=== PATIENT | male | born 1950 | race Caucasian/White ===

== ENCOUNTER 2016-06-29 06:25 | Day surgery (SDC) | payer OTHER ==
[2016-06-28 09:47] LABS: BLOOD UREA NITROGEN 15 mg/dL (7-18)
[2016-06-28 09:53] LABS: ASPARTATE AMINO TRANSFERASE 14 U/L (15-37)
[~2016-06-29] VITALS: Ht 175.3 cm; Wt 66.0 kg
[~2016-06-29 06:25] MED LIST: BENA20TA2 PO; OMEP-110 PO; OXYC-302 PO
[2016-06-29 06:36] VITALS: BP 131/81
[2016-06-29] MEDS ORDERED: LACTATED RINGERS 1,000 ML IV SCH (06:39)
[2016-06-29] MEDS ORDERED: BUPIVACAINE/PF-EPI 0.5% 1:200K ONE (06:45)
[2016-06-29] MEDS ORDERED: FENTANYL PF 250 MCG/5ML ONE (07:12)
[2016-06-29] MEDS ORDERED: MIDAZOLAM 1 MG/ML, 2ML ONE (07:12)
[2016-06-29] MEDS ORDERED: GLYCOPYRROLATE 0.2MG/1ML ONE (07:15)
[2016-06-29] MEDS ORDERED: DEXAMETHASONE 4 MG/ML, 1ML ONE (07:15)
[2016-06-29] MEDS ORDERED: KETOROLAC 30 MG/1 ML ONE (07:15)
[2016-06-29] MEDS ORDERED: SUCCINYLCHOLINE 20 MG/ML, 10ML ONE (07:15)
[2016-06-29] MEDS ORDERED: PROPOFOL 10 MG/ML, 20ML ONE (07:15)
[2016-06-29] MEDS ORDERED: ONDANSETRON 2MG/ML, 2ML ONE (07:15)
[2016-06-29] MEDS ORDERED: NEOSTIGMINE 1 MG/ML, 10ML ONE (07:15)
[2016-06-29] MEDS ORDERED: ROCURONIUM 10 MG/ML ONE (07:15)
[2016-06-29] MEDS ORDERED: HYDROmorphone 1 MG/ML, 1ML IV PRN (08:00)
[2016-06-29] MEDS ORDERED: ONDANSETRON 2MG/ML, 2ML IVPush PRN (08:00)
[2016-06-29] MEDS ORDERED: ACETAMINOPHEN 325 MG TABLET PO PRN (08:00)
[2016-06-29] MEDS ORDERED: OXYcodone 5 MG/5 ML ORAL.SOL UDC PO PRN (08:00)
[2016-06-29] MEDS ORDERED: FENTANYL PF 100 MCG/2ML IV PRN (08:00)
[2016-06-29] MEDS ORDERED: PROMETHAZINE 25 MG/ML, 1ML IV PRN (08:00)
[2016-06-29] MEDS ORDERED: MEPERIDINE/PF 25MG/0.5ML IVPush PRN (08:00)
[2016-06-29] MEDS ORDERED: MIDAZOLAM 1 MG/ML, 2ML IV PRN (08:00)
[2016-06-29] MEDS ORDERED: HYDROcodone/APAP 7.5-325MG/15ML UDC PO PRN (08:00)
[2016-06-29] MEDS ORDERED: ACETAMINOPHEN 650 MG/20.3 ML UDC ONE (08:32)
[2016-06-29] MEDS ORDERED: OXYcodone 5 MG/5 ML ORAL.SOL UDC ONE (08:33)
== END 2016-06-29 11:15 ==
LOC: OUT 06:25 → MERGE 07:30 → OUT 11:15
PROVIDERS: ATTEND Surgery
DX: C20 Malignant neoplasm of rectum (principal)
CPT/HCPCS: 36415; 45171; 80053; 82378; 88305; 88309; 88329; 93005; J0330; J1100; J1885; J2250; J2405; J2704; J2710; J3010; J7120; 88304; J3490

== ENCOUNTER 2016-07-06 20:08 | Emergency (ER) | payer OTHER ==
[~2016-07-06] VITALS: Ht 175.3 cm; Wt 65.3 kg
[2016-07-06] MEDS ORDERED: SODIUM CHLORIDE 0.9% 1,000ML IVBOLUS ONE (20:30)
[2016-07-06] MEDS ORDERED: SODIUM CHLORIDE FLUSH 10ML SYR IVF ONE (20:30)
[2016-07-06 20:47] LABS: HEMOGLOBIN 12.4 g/dL (13.7-18.0)
[2016-07-06 21:00] LABS: ASPARTATE AMINO TRANSFERASE 11 U/L (15-37); BLOOD UREA NITROGEN 16 mg/dL (7-18)
[2016-07-06] MEDS ORDERED: OXYC-302 PO (21:03)
[2016-07-06 22:34] VITALS: BP 127/65
== END 2016-07-06 22:36 | disposition home or self-care (01) ==
LOC: ED 22:30
DX: K62.5 Hemorrhage of anus and rectum (principal)
CPT/HCPCS: 36415; 74177; 80053; 85025; 85610; 85730; 86850; 86900; 96360; 99285; J7030

== ENCOUNTER → 2016-08-03 | Outpatient (CLI) | payer OTHER | END | disposition home or self-care (01) | LOC: ROC 11:11 | PROVIDERS: ATTEND Radiology Radiation Oncology | DX: C32.1 Malignant neoplasm of supraglottis (principal) | CPT/HCPCS: 99212; G0463 ==

== ENCOUNTER → 2016-09-25 | Outpatient (CLI) | payer OTHER | END | disposition home or self-care (01) | LOC: ROC 13:20 | PROVIDERS: ATTEND Radiology Radiation Oncology | DX: Z08 Encounter for follow-up examination after completed treatment for malignant neoplasm (principal); C32.1 Malignant neoplasm of supraglottis; C20 Malignant neoplasm of rectum | CPT/HCPCS: 99212; G0463 ==

== ENCOUNTER → 2017-02-08 | Outpatient (CLI) | payer MEDICARE | END | disposition home or self-care (01) | LOC: ROC 07:38 | PROVIDERS: ATTEND Radiology Radiation Oncology | DX: C32.1 Malignant neoplasm of supraglottis (principal) | CPT/HCPCS: G0463 ==

== ENCOUNTER → 2017-08-15 | Outpatient (CLI) | payer MEDICARE | LOC: ROC 13:02 | PROVIDERS: ATTEND Radiology Radiation Oncology | DX: Z08 Encounter for follow-up examination after completed treatment for malignant neoplasm (principal); C32.1 Malignant neoplasm of supraglottis; Z98.890 Other specified postprocedural states | CPT/HCPCS: G0463 ==